=== PATIENT | male | born 1950 | race Caucasian/White ===

== ENCOUNTER 2016-09-02 15:33 | Inpatient (IN) | payer SELFPAY ==
--- NOTE | 2016-09-02 15:46 | EDPHY ---
H & P Time Seen by Provider: 09/02/16 15:42 HPI/ROS: CHIEF COMPLAINT: I am feeling weak HISTORY OF PRESENT ILLNESS: The patient is a 66-year-old male with a history of diabetes and hypertension who presents to the emergency department with weakness. The patient was admitted on 08/19/2016 and discharged on 08/22/2016 with community-acquired pneumonia. He took a total of 10 days of Levaquin. The 1st 3 days for IV in the hospital and he was discharged with 7 days of Levaquin. Patient states that he felt better when he was discharged home. However, for the past few days he has been feeling worse. The patient states I think might pneumonia is right here. He is pointing to the right upper lobe. The patient feels fatigued. He has increased shortness of breath with ambulation. Mild right upper chest discomfort. REVIEW OF SYSTEMS: My complete review of systems is negative except as mentioned in the HPI. Past Medical/Surgical History: Includes diabetes, hypertension, hypothyroidism, pneumonia Past surgical history: Includes appendectomy Social history: Patient lives at a [address]. He is retired [employer] Smoking Status: Current every day smoker Physical Exam: GENERAL: Well-appearing, in no acute distress, alert. HEENT: Eyes normal to inspection, normal pharynx, no signs of dehydration. NECK: No thyromegaly, no lymphadenopathy, supple. RESPIRATORY: Mild decreased breath sounds in the right upper lobe, no rales, rhonchi or wheezing. CVS: Regular rate and rhythm, no rubs, murmurs, or gallops. ABDOMEN: Soft, nontender, nondistended, no organomegaly. BACK: Normal to inspection, no CVA tenderness. SKIN: Normal color, no rash, warm, dry. No pallor. EXTREMITIES: No pedal edema, no calf tenderness, no Homans sign or cords, no joint swelling. NEURO/PSYCH: Alert and oriented, normal mood and affect, normal motor sensory exam. Constitutional: Initial Vital Signs Temperature (C) 36.9 C 09/02/16 15:35 Heart Rate 114 H 09/02/16 15:35 Respiratory Rate 16 09/02/16 15:35 Blood Pressure 122/66 H 09/02/16 15:35 O2 Sat (%) 93 09/02/16 15:35 O2 Delivery Mode Room Air Allergies/Adverse Reactions: Penicillins Allergy (Verified 08/14/16 12:09) Home Medications: Medication Instructions Recorded glyBURIDE [Glyburide] 10 mg PO DAILY 08/14/16 Levothyroxine [Synthroid 150 mcg 150 mcg PO DAILY06 08/19/16 (*)] Lisinopril [Zestril 40 mg (*)] 40 mg PO DAILY 08/19/16 Albuterol Hfa Anes Only [Proair 2 puffs IH QID PRN #1 mdi 08/22/16 Hfa Icu (*)] amLODIPine BESYLATE [Norvasc 2.5 2.5 mg PO DAILY #0 tab 08/22/16 mg (*)] levOFLOXACIN [Levofloxacin] 500 mg PO DAILY #7 tablet 08/22/16 oxyCODONE IR [Oxycodone Ir (*)] 5 mg PO Q6 PRN #30 tab 08/22/16 Medical Decision Making - Diagnostics EKG Interpretation: Sinus rhythm at 88. Right atrial abnormality. Normal axis. Normal intervals. Flattened T-waves V4 through V6. ED Course/Re-evaluation: In the emergency department I discussed the plan with the patient answered all his questions. IV was placed. Laboratory studies, EKG and chest x-ray were obtained. I reviewed the patient's previous records. I was contacted by the lab for an elevated glucose of greater than 500. The patient's anion gap is normal. [place] [address]. Hematocrit is mildly low at 37. The patient's sodium is low at 131. I reviewed the patient's imaging studies with the radiologist. I subsequently discussed the case with Dr. Ying, the patient's primary physician. She states that he was recently diagnosed with both hepatitis-B and C. His sugars are not normally significantly elevated. She recommended the patient be admitted for further treatment and observation. I discussed the result with the patient. I answered all his questions. Discussed the case with Dr. Huff. A CT of the chest will be ordered. He recommended Zosyn as antibiotic choice. Prior to ordering Zosyn it was noted the patient has an allergy to penicillin. Patient was given azithromycin 500 mg IV and ertapenem 1 g IV. 18 54: I discussed the case with Dr. Sam Esparza. He states there is no pulmonary embolus. The patient has a significantly consolidated right upper lobe infiltrate. This does raise concern for early abscess. Patient also has significant emphysema. Patient has an annular pancreas. Differential Diagnosis: My differential includes but is not limited to pneumonia, empyema, electrolyte abnormality, sugar abnormality, malignancy, mass, ACS, acute MA, dehydration - Data Points Laboratory Results: Laboratory Results 09/02/16 16:10 09/02/16 16:10 09/02/16 09/02/16 17:00 16:10 WBC 14.62 H 10^3/uL (3.80-9.50) RBC 4.00 L 10^6/uL (4.40-6.38) Hgb 12.8 L g/dL (13.7-17.5) Hct 37.5 L % (40.0-51.0) MCV 93.8 fL (81.5-99.8) MCH 32.0 pg (27.9-34.1) MCHC 34.1 g/dL (32.4-36.7) RDW 12.7 % (11.5-15.2) Plt Count 367 10^3/uL (150-400) MPV 10.5 fL (8.7-11.7) Neut % (Auto) 75.0 H % (39.3-74.2) Lymph % (Auto) 16.5 % (15.0-45.0) Donley % (Auto) 7.0 % (4.5-13.0) Eos % (Auto) 0.2 L % (0.6-7.6) Baso % (Auto) 0.5 % (0.3-1.7) Nucleat RBC Rel Count 0.0 % (0.0-0.2) Absolute Neuts (auto) 10.96 H 10^3/uL (1.70-6.50) Absolute Lymphs (auto) 2.41 10^3/uL (1.00-3.00) Absolute Monos (auto) 1.03 H 10^3/uL (0.30-0.80) Absolute Eos (auto) 0.03 10^3/uL (0.03-0.40) Absolute Basos (auto) 0.07 10^3/uL (0.02-0.10) Absolute Nucleated RBC 0.00 10^3/uL (0-0.01) Immature Gran % 0.8 % (0.0-1.1) Immature Gran # 0.12 H 10^3/uL (0.00-0.10) Sodium 131 L mEq/L (134-144) Potassium 3.7 mEq/L (3.5-5.2) Chloride 92 L mEq/L (97-110) Carbon Dioxide 28 mEq/l (22-31) Anion Gap 11 mEq/L (8-16) BUN 16 mg/dL (7-23) Creatinine 0.6 L mg/dL (0.7-1.3) Estimated GFR > 60 Glucose 549 H* mg/dL (70-100) Calcium 8.6 mg/dL (8.5-10.4) Troponin I < 0.012 ng/mL (0-0.034) NT-Pro-B Natriuret Pep 241 H pg/mL (0-125) Influenza Typ A,B (DFA) NEGATIVE FOR FLU (NEGATIVE) Medications Given: Discontinued Medications Sodium Chloride (Ns) 1,000 mls @ 0 mls/hr IV ONCE ONE PRN Reason: Wide Open Stop: 09/02/16 17:03 Last Admin: 09/02/16 17:06 Dose: 1,000 mls Azithromycin 500 mg/ Dextrose 255 mls @ 255 mls/hr IV EDNOW ONE PRN Reason: Protocol Stop: 09/02/16 18:32 Last Admin: 09/02/16 18:37 Dose: 255 mls Ertapenem 1 gm/ Sodium (Chloride) 100 mls @ 200 mls/hr IV EDNOW ONE PRN Reason: Protocol Stop: 09/02/16 18:02 Last Admin: 09/02/16 17:56 Dose: 100 mls Sodium Chloride (Ns) 1,000 mls @ 0 mls/hr IV ONCE ONE PRN Reason: Wide Open Stop: 09/02/16 18:39 Last Admin: 09/02/16 18:40 Dose: 1,000 mls Departure - Departure Disposition: [facility] Acute Clinical Impression: Right upper lobe pneumonia, Hyperglycemia, Hyponatremia Condition: Good
[2016-09-02 16:42] LABS: % IMMATURE GRANULYOCYTES 0.8 % (0.0-1.1); ABSOLUTE IMMATURE GRANULOCYTES 0.12 10^3/uL (0.00-0.10); ADD DIFF? NO; ADD MORPH? NO; ADD SCAN? NO; ATYPICAL LYMPHOCYTE FLAG 80 (0-99); FRAGMENT RBC FLAG 0 (0-99); HEMATOCRIT 37.5 % (40.0-51.0); HEMOGLOBIN 12.8 g/dL (13.7-17.5); LEFT SHIFT FLG 10 (0-99); LIPEMIA HEMOLYSIS FLAG 90 (0-99); MEAN CELL HEMOGLOBIN CONCENTR. 34.1 g/dL (32.4-36.7); MEAN CELL VOLUME 93.8 fL (81.5-99.8); MEAN PLATELET VOLUME 10.5 fL (8.7-11.7); PLATELET CLUMPS FLAG 0 (0-99); PLATELET COUNT 367 10^3/uL (150-400); RED CELL DISTRIBUTION WIDTH 12.7 % (11.5-15.2)
[2016-09-02 16:58] LABS: ANION GAP 11 mEq/L (8-16); CALCIUM 8.6 mg/dL (8.5-10.4); CARBON DIOXIDE 28 mEq/l (22-31); CHLORIDE 92 mEq/L (97-110); CREATININE 0.6 mg/dL (0.7-1.3); GLOMERULAR FILTRATION RATE > 60; POTASSIUM 3.7 mEq/L (3.5-5.2); SODIUM 131 mEq/L (134-144)
--- NOTE | 2016-09-02 16:59 | DX ---
PA and Lateral Chest on September 02, 2016 at 1618 hours Clinical Indications: Pneumonia. Comparison: August 21, 2016. Findings: Peripheral right upper lobar consolidation is predominantly unchanged compared to 2 weeks prior. There is no effusion. The left lung is clear. The heart and pulmonary vessels are normal. Ther e are no pleural effusions and no pneumothorax. The bones are unremarkable for this age. Impression: No significant change in the right upper lobe pneumonia.
[2016-09-02 17:00] LABS: GLUCOSE 549 mg/dL (70-100)
[2016-09-02] MEDS ORDERED: NS 1,000 ML IV ONE ×2 (17:02→18:38)
[2016-09-02 17:10] LABS: TROPONIN I < 0.012 ng/mL (0-0.034)
--- NOTE | 2016-09-02 17:11 | CPEKG ---
Heart Rate: 88 RR Interval: 682 P-R Interval: 140 QRSD Interval: 82 QT Interval: 404 QTC Interval: 489 P Festus: 76 QRS Festus: 71 T Wave Festus: 81 EKG Severity - ABNORMAL ECG - EKG Impression: SINUS RHYTHM EKG Impression: RIGHT ATRIAL ABNORMALITY EKG Impression: BORDERLINE T ABNORMALITIES, ANT-LAT LEADS EKG Impression: BORDERLINE PROLONGED QT INTERVAL Electronically Signed By: Zeina Sosa 02-Sep-2016 22:03:24
[2016-09-02] MEDS ORDERED: AZITHROMYCIN IV 500 MG in D5W 250 ML IV ONE (17:33)
[2016-09-02] MEDS ORDERED: ERTAPENEM 1 GM in NS 100 ML IV ONE (17:33)
[2016-09-02] MEDS ORDERED: IOPAMIDOL (ISOVUE 370) 100 ML BTL IV ONE (18:15)
--- NOTE | 2016-09-02 18:56 | CT ---
CT Pulmonary Angiogram 1826 hours Clinical Indications: Dyspnea. Persistent pneumonia not improving with antibiotics. History of tobacc o use, hypertension, diabetes, and Shortness of breath. Elevated white blood count. Technique: Thinly collimated multidetector helical CT imaging was performed through the chest while 90 mL Isovue-370 were injected intravenously without complication. The images were reconstructed in multiple planes. Dose reduction techniques were utilized. Findings: Comparison to prior chest x-ray studies from earlier today an from August 21, 2016. CT Angiogram: There is no evidence of intraluminal thrombus within the pulmonary arterial system. Th e thoracic aorta has a normal contour without evidence of aneurysm or dissection. There is mild arter iosclerotic calcification associated with the proximal to mid LAD. There is no pericardial effusion. The cardiac chambers are normal in appearance. CT Chest: There is dense consolidation right upper lobe that contains some gas collections along with associated areas of decreased attenuation and enhancement possibly related to small pulmonary absces ses. No large dominant pulmonary abscess is seen. Some of these gas collections, however, could be re lated to underlying emphysema. The dense consolidation extends around the right hilum. There is also extension of heterogeneous enhancement into the subcarinal region suspicious for lymphadenopathy. Sma ller lymph nodes are present in the AP window. There is no evidence of narrowing of the bronchus on t he right that is surrounded by soft tissue components. There are scattered emphysematous changes elsewhere within the lungs bilaterally. No additional conso lidation is seen or evidence of effusion. Small blebs are seen adjacent to the right hemidiaphragm as well as some scattered small peripheral blebs in the lung parenchyma bilaterally. Soft tissues are otherwise unremarkable. Incidental note is made of annular pancreas surrounding the second portion o f the duodenum without evidence of obstruction or thickening. The right and left adrenal glands are t hickened diffusely suspicious for adrenal hyperplasia. Otherwise, the visualized upper abdominal stru ctures are unremarkable during arterial phase of imaging. Skeletal system: Vertebral body heights are well-maintained. There are no lytic or sclerotic osseous lesions. Impression: 1. No evidence of pulmonary embolus using CT protocol. 2. Dense consolidation right upper lobe with areas of low density and gas bubbles that could represen t small areas of pulmonary abscesses versus gas-filled areas related to underlying emphysema. 3. Dense consolidation extends around the right hilum and into the subcarinal region. This is probabl y related to consolidation/pneumonia. Lymphadenopathy secondary to malignancy is felt to be possible but less likely. Consider followup CT of the chest following successful treatment. If findings do not improve then bronchoscopy may be utilized as clinically directed. 4. Moderate emphysematous changes throughout the lungs with scattered peripheral blebs also noted. 5. Annular pancreas 6. Adrenal hyperplasia suspected. These findings were discussed by telephone with Dr. Zeina Sosa at 1855 hrs.
[2016-09-02] MEDS ORDERED: ONDANSETRON DISINTEGRATING 4 MG TAB PO PRN (21:20)
[2016-09-02] MEDS ORDERED: ACETAMINOPHEN 325 MG TAB PO PRN (21:20)
[2016-09-02] MEDS ORDERED: ALBUTEROL 3 ML DEYVIAL IH PRN (21:20)
[2016-09-02] MEDS ORDERED: ONDANSETRON 4 MG/2 ML VIAL IVP PRN (21:20)
[2016-09-02] MEDS ORDERED: ZOLPIDEM TARTRATE 5 MG TAB PO PRN (21:20)
[2016-09-02] MEDS ORDERED: D50W 25 GM/50 ML SYR IVP PRN (21:23)
[2016-09-02] MEDS ORDERED: oxyCODONE IR 5 MG TAB PO PRN (21:26)
--- NOTE | 2016-09-02 22:06 | GHP ---
[f rep st] HISTORY AND PHYSICAL DATE OF ADMISSION: 09/02/2016 CHIEF COMPLAINT: Weakness. HISTORY OF PRESENT ILLNESS: This is a 66-year-old male who was recently admitted to the hospital and discharged on August 22. He was diagnosed with a right upper lobe pneumonia at that time. He was started on Levaquin and said he felt better over the next several days. He actually states that bef ore he was diagnosed with pneumonia, approximately for the last 2 or 3 weeks he has been having diffi culty eating in that nothing tastes good and he has been having nausea. He had been complaining of g eneralized weakness. When he was diagnosed with pneumonia and started on antibiotics, some of his sy mptoms including sputum production and cough improved, but he continues with poor appetite and weakne ss. The patient said his sputum has cleared. He denies any chest pain. He is not having any fevers or chills. He has lost about 15-20 pounds in the last several weeks. REVIEW OF SYSTEMS: 10-point review of systems obtained and other than stated above was negative. PAST MEDICAL HISTORY: 1. Type 2 diabetes. 2. Hypothyroidism. 3. Hypertension. 4. Recent diagnosis of hepatitis B and C. PAST SURGICAL HISTORY: Appendectomy. ALLERGIES: Penicillin. He had an episode of emesis when he received penicillin as a child. FAMILY HISTORY: Father with dementia. SOCIAL HISTORY: Patient does smoke, although he has reduced his smoking. He is a retired [employer]. PHYSICAL EXAMINATION: VITAL SIGNS: Afebrile, blood pressure is 131/73, heart rate 87, oxygen satura tion 94% on room air. GENERAL: The patient is thin, but in no apparent distress. HEENT: Nonicteri c sclerae. Extraocular muscles intact. Moist mucous membranes. NECK: Supple. No thyromegaly. ANNEMARIE NGS: Good effort. Clear to auscultation bilaterally. LUNGS: Good effort. Decreased breath sounds in the right upper lobe; otherwise, clear. CARDIOVASCULAR: Regular rate, rhythm. No murmurs or ga llops. ABDOMEN: Positive bowel sounds. Soft, nontender, nondistended. No hepatosplenomegaly. EXT REMITIES: No clubbing, cyanosis, or edema. SKIN: Without rash. Warm, dry, intact. NEUROLOGIC: Al ert and oriented x3. Moving all 4 extremities equally. PSYCH: Normal mood and affect. LABS: White count of 14, which is better than his discharge white count of 22. Sodium 136, potassiu m 3.1, BUN is 16, creatinine 0.6, glucose is 549 with repeat. Chest x-ray shows no change from previous with a right upper lobe infiltrate, and CT scan shows a den se consolidation in the right upper lobe, possible small areas of pulmonary abscess versus gas-filled areas due to underlying emphysema. There is lymphadenopathy. ASSESSMENT: This is a 66-year-old male with persistent right upper lobe pneumonia. PLAN: 1. Right upper lobe pneumonia. The patient's pulmonary infectious symptoms seem to be improving. H is main complaint is poor appetite and overall weakness. There may be an element of pulmonary absces s there, but I am more worried about malignancy. We will probably have to call Pulmonology see in morning for possible bronchoscopy and bronchoscopy. I switched his antibiotics to Invanz to cover postobstructive pneumonia. I am going to hold off on adding vancomycin at this time. 2. Type 2 diabetes, uncontrolled. This is probably related to underlying pneumonia. He has been ta ruddy his medications. We will continue sliding scale insulin. Since we will keep him n.p.o., we aroldo l probably hold his glyburide tomorrow. 3. Hypertension. Continue lisinopril. 4. Recent hepatitis B and C diagnosis. /[id number]/MODL
[2016-09-03 05:09] LABS: % IMMATURE GRANULYOCYTES 0.7 % (0.0-1.1); ADD DIFF? NO; ADD MORPH? NO; ADD SCAN? NO; ATYPICAL LYMPHOCYTE FLAG 80 (0-99); FRAGMENT RBC FLAG 0 (0-99); HEMATOCRIT 33.4 % (40.0-51.0); HEMOGLOBIN 11.2 g/dL (13.7-17.5); LEFT SHIFT FLG 10 (0-99); LIPEMIA HEMOLYSIS FLAG 80 (0-99); MEAN CELL HEMOGLOBIN 31.8 pg (27.9-34.1); MEAN CELL HEMOGLOBIN CONCENTR. 33.5 g/dL (32.4-36.7); MEAN CELL VOLUME 94.9 fL (81.5-99.8); MEAN PLATELET VOLUME 10.1 fL (8.7-11.7); PLATELET CLUMPS FLAG 0 (0-99); PLATELET COUNT 359 10^3/uL (150-400); RED BLOOD CELL COUNT 3.52 10^6/uL (4.40-6.38)
[2016-09-03 05:23] LABS: ALANINE AMINOTRANSFERASE 102 IU/L (21-72); ALBUMIN 2.2 g/dL (3.5-5.0); ALKALINE PHOSPHATASE 87 IU/L (38-126); ANION GAP 7 mEq/L (8-16); ASPARTATE AMINOTRANSFERASE 83 IU/L (17-59); BILIRUBIN,TOTAL 0.5 mg/dL (0.1-1.4); CALCIUM 7.4 mg/dL (8.5-10.4); CARBON DIOXIDE 28 mEq/l (22-31); CHLORIDE 102 mEq/L (97-110); CREATININE 0.5 mg/dL (0.7-1.3); GLOMERULAR FILTRATION RATE > 60; GLUCOSE 236 mg/dL (70-100); POTASSIUM 3.8 mEq/L (3.5-5.2); SODIUM 137 mEq/L (134-144); TOTAL PROTEIN 5.8 g/dL (6.3-8.2)
[2016-09-03] MEDS: LEVOTHYROXINE 150 MCG TAB PO SCH (05:37)
[2016-09-03] MEDS: LISINOPRIL 40 MG TAB PO SCH (08:28)
[2016-09-03] MEDS: ERTAPENEM 1 GM in NS 100 ML IV SCH (08:28)
[2016-09-03] MEDS: INSULIN LISPRO 100 UNIT/ML SC SCH ×3 (10:02→18:08)
--- NOTE | 2016-09-03 12:15 | HOSPPROG ---
Hospitalist Progress Note Assessment/Plan: 66 yo M with longstanding and current tobacco use hx presenting with continued RUL PNA # RUL PNA: with evidence of pulmonary abscess on personal review of cta. He has typical sxs of lung abscess with now weeks of malaise, night sweats, weight loss. He was treated recently for the same and d/c'ed on levofloxacin. Started on ertapenem overnight with clinical improvement. Will ask pulmonary to review patients chest CT but suspect f/u CT in 3 months appropriate so long as pt continues to improve as expected. # sepsis: pt with tachycardia, leukocytosis in setting of above, abx as above, HD stable, cultures pending # DM2: continue ssi, hyperglycemia likely related to stress response in setting of sepsis # copd: undiagnosed but given approximately 50 pack year smoking hx and likely blebs on CT very likely. Will start duonebs/albuterol. Good air mvmt and no e/o acute exacerbation currently # malnutrition: with BMI of 17, states he has lost 15-20 pounds in the last several weeks, will ask for nutrtition consult # tobacco use: patient interested in quitting, states he has cut down significantly already # dispo: IP status, will need > 48 hours stay for eval/mgmt of above and IV abx Patient new to my care. Old records reviewed and summarized as above. Subjective: no significant overnight events, patient feeling better than yesterday already in terms of energy Objective: Vital Signs Temp Pulse Resp BP Pulse Ox 37.1 C 89 14 107/66 94 09/03/16 11:29 09/03/16 11:29 09/03/16 11:29 09/03/16 11:29 09/03/16 11:29 Laboratory Results 09/03/16 04:36 09/03/16 04:36 09/02/16 09/03/16 09/04/16 05:59 05:59 05:59 Intake Total 2955 Output Total 800 Balance 2155 thin, chronically ill appearing man anicteric op clear rrr no mrg cta with normal wob, occ rales on right soft nt nd no cce warm dry well perfused oriented appropriate - Time Spent With Patient Time Spent with Patient: greater than 35 minutes Time Spent with Patient: Greater than 35 minutes spent on this patients care, greater than 50% of time spent counseling, educating, and coordinating care regarding the above mentioned plan. ICD10 Worksheet Patient Problems: Problems Problem Status Diagnosed Hyperglycemia Acute Hyponatremia Acute Right upper lobe pneumonia Acute Pneumonia Acute Viral syndrome Acute
[2016-09-03] MEDS: IPRATROPIUM/ALBUTEROL 3 ML DEYVIAL IH SCH ×3 (16:09→23:25)
[2016-09-03] MEDS: ACETYLCYSTEINE 10% 30 ML VIAL IH SCH ×3 (16:09→23:25)
[2016-09-03 18:01] LABS: GLUCOSE 317 mg/dL (70-100); SPECIMEN HEMOLYSIS 153
[2016-09-04] MEDS: IPRATROPIUM/ALBUTEROL 3 ML DEYVIAL IH SCH ×4 (05:27→21:12)
[2016-09-04] MEDS: ACETYLCYSTEINE 10% 30 ML VIAL IH SCH ×4 (05:27→21:13)
[2016-09-04 05:42] LABS: % IMMATURE GRANULYOCYTES 0.6 % (0.0-1.1); ABSOLUTE IMMATURE GRANULOCYTES 0.06 10^3/uL (0.00-0.10); ADD DIFF? NO; ADD MORPH? NO; ADD SCAN? NO; ATYPICAL LYMPHOCYTE FLAG 90 (0-99); FRAGMENT RBC FLAG 0 (0-99); HEMATOCRIT 33.2 % (40.0-51.0); HEMOGLOBIN 11.1 g/dL (13.7-17.5); LEFT SHIFT FLG 0 (0-99); LIPEMIA HEMOLYSIS FLAG 80 (0-99); MEAN CELL HEMOGLOBIN 32.5 pg (27.9-34.1); MEAN CELL HEMOGLOBIN CONCENTR. 33.4 g/dL (32.4-36.7); MEAN CELL VOLUME 97.1 fL (81.5-99.8); PLATELET CLUMPS FLAG 10 (0-99); PLATELET COUNT 353 10^3/uL (150-400); RED BLOOD CELL COUNT 3.42 10^6/uL (4.40-6.38); RED CELL DISTRIBUTION WIDTH 12.8 % (11.5-15.2)
[2016-09-04 05:49] LABS: ANION GAP 4 mEq/L (8-16); CALCIUM 7.5 mg/dL (8.5-10.4); CARBON DIOXIDE 32 mEq/l (22-31); CHLORIDE 99 mEq/L (97-110); CREATININE 0.4 mg/dL (0.7-1.3); GLOMERULAR FILTRATION RATE > 60; GLUCOSE 276 mg/dL (70-100); POTASSIUM 4.3 mEq/L (3.5-5.2); SODIUM 135 mEq/L (134-144)
[2016-09-04] MEDS: LEVOTHYROXINE 150 MCG TAB PO SCH (06:03)
[2016-09-04] MEDS: LISINOPRIL 40 MG TAB PO SCH (08:52)
[2016-09-04] MEDS: ENOXAPARIN 40 MG/0.4 ML SYR SC SCH (08:52)
[2016-09-04] MEDS: INSULIN LISPRO 100 UNIT/ML SC SCH ×3 (08:52→17:16)
[2016-09-04] MEDS: ERTAPENEM 1 GM in NS 100 ML IV SCH (08:53)
[2016-09-04 12:16] LABS: GLUCOSE 371 mg/dL (70-100)
--- NOTE | 2016-09-04 15:06 | HOSPPROG ---
Hospitalist Progress Note Assessment/Plan: 66 yo M with longstanding and current tobacco use hx presenting with continued RUL PNA # RUL PNA: with evidence of likely pulmonary abscess on personal review of cta. He has typical sxs of lung abscess with now weeks of malaise, night sweats, weight loss. Improving significantly on ertapenem. Reviewed care plan with pulmonary who agrees with plan to continue tx with abx x 2-3 weeks and then have pt f/u for repeat CT scan in 1 month. # sepsis: pt with tachycardia, leukocytosis in setting of above, abx as above, HD stable, cultures pending # DM2: continue ssi, hyperglycemia likely related to stress response in setting of sepsis # copd: undiagnosed but given approximately 50 pack year smoking hx and imaging evidence of copd. Will start duonebs/albuterol. Good air mvmt and no e/o acute exacerbation currently # malnutrition: with BMI of 17, states he has lost 15-20 pounds in the last several weeks, will ask for nutrtition consult # tobacco use: patient interested in quitting, states he has cut down significantly already # dispo: IP status, will need > 48 hours stay for eval/mgmt of above and IV abx Reviewed care plan with pulmonary as above. Subjective: no significant overnight events, patient states that he is feeling better again today, he is breathing easier, coughing still, eating better Objective: Vital Signs Temp Pulse Resp BP Pulse Ox 36.3 C 95 18 121/73 H 93 09/04/16 07:21 09/04/16 07:21 09/04/16 07:21 09/04/16 08:52 09/04/16 07:21 Laboratory Results 09/04/16 04:56 09/04/16 11:15 09/03/16 09/04/16 09/05/16 05:59 05:59 05:59 Intake Total 2955 2175 Output Total 800 Balance 2155 2175 thin, chronically ill appearing man anicteric op clear rrr no mrg cta with normal wob, occ rales on right soft nt nd no cce warm dry well perfused oriented appropriate - Time Spent With Patient Time Spent with Patient: greater than 35 minutes Time Spent with Patient: Greater than 35 minutes spent on this patients care, greater than 50% of time spent counseling, educating, and coordinating care regarding the above mentioned plan. ICD10 Worksheet Patient Problems: Problems Problem Status Diagnosed Hyperglycemia Acute Hyponatremia Acute Right upper lobe pneumonia Acute Pneumonia Acute Viral syndrome Acute
[2016-09-04] MEDS ORDERED: LORazepam 1 MG TAB PO PRN (16:14)
[2016-09-04] MEDS ORDERED: NICOTINE POLACRILEX 2 MG GUM B PRN (16:14)
[2016-09-04] MEDS: NICOTINE 14 MG/24 HR PATCH TD SCH (17:18)
[2016-09-05] MEDS: ACETYLCYSTEINE 10% 30 ML VIAL IH SCH ×4 (05:00→21:21)
[2016-09-05] MEDS: IPRATROPIUM/ALBUTEROL 3 ML DEYVIAL IH SCH ×4 (05:00→21:21)
[2016-09-05] MEDS: LEVOTHYROXINE 150 MCG TAB PO SCH (06:01)
[2016-09-05] MEDS: LISINOPRIL 40 MG TAB PO SCH (09:04)
[2016-09-05] MEDS: INSULIN LISPRO 100 UNIT/ML SC SCH ×2 (09:05→12:15)
[2016-09-05] MEDS: ERTAPENEM 1 GM in NS 100 ML IV SCH (09:05)
[2016-09-05] MEDS: ENOXAPARIN 40 MG/0.4 ML SYR SC SCH (09:05)
[2016-09-05] MEDS: NICOTINE 14 MG/24 HR PATCH TD SCH (09:07)
--- NOTE | 2016-09-05 14:52 | HOSPPROG ---
Hospitalist Progress Note Assessment/Plan: 66 yo M with longstanding and current tobacco use hx presenting with continued RUL PNA # RUL PNA: with evidence of likely pulmonary abscess on personal review of cta. He has typical sxs of lung abscess with now weeks of malaise, night sweats, weight loss. Improving significantly on ertapenem. Reviewed care plan with pulmonary who agrees with plan to continue tx with abx x 2-3 weeks (likely can transition to oral clindamycin at time of dc) and then have pt f/u for repeat CT scan in 1 month. Plan was reviewed with patient and he understands, reviewed the possibility of occult malignancy with him as well. # sepsis: pt with tachycardia, leukocytosis in setting of above, abx as above, HD stable, cultures pending # DM2: continue ssi, hyperglycemia likely related to stress response in setting of sepsis # copd: undiagnosed but given approximately 50 pack year smoking hx and imaging evidence of copd. Will start duonebs/albuterol. Good air mvmt and no e/o acute exacerbation currently # malnutrition: with BMI of 17, states he has lost 15-20 pounds in the last several weeks, nutrition consult # tobacco use: patient interested in quitting, states he has cut down significantly already # dispo: IP status, will need > 48 hours stay for eval/mgmt of above and IV abx Subjective: no significant overnight events, patient is feeling a bit better-- his appetitie is improved as is his energy, but still quite fatigued. Cough better. Objective: Vital Signs Temp Pulse Resp BP Pulse Ox 36.6 C 90 18 122/81 H 98 09/05/16 07:41 09/05/16 07:41 09/05/16 07:41 09/05/16 07:41 09/05/16 07:41 Laboratory Results 09/04/16 04:56 09/04/16 11:15 09/04/16 09/05/16 09/06/16 05:59 05:59 05:59 Intake Total 2175 800 Balance 2175 800 thin, chronically ill appearing man anicteric op clear rrr no mrg cta with normal wob, occ rales on right soft nt nd no cce warm dry well perfused oriented appropriate ICD10 Worksheet Patient Problems: Problems Problem Status Diagnosed Hyperglycemia Acute Hyponatremia Acute Right upper lobe pneumonia Acute Pneumonia Acute Viral syndrome Acute
[2016-09-05] MEDS: INSULIN LISPRO 100 UNIT/1 ML VIAL HIGH SC SCH (18:31)
[2016-09-06] MEDS: ACETYLCYSTEINE 10% 30 ML VIAL IH SCH ×4 (05:08→22:11)
[2016-09-06] MEDS: IPRATROPIUM/ALBUTEROL 3 ML DEYVIAL IH SCH ×4 (05:09→22:12)
[2016-09-06] MEDS: LEVOTHYROXINE 150 MCG TAB PO SCH (05:13)
[2016-09-06] MEDS ORDERED: INSULIN LISPRO 100 UNIT/ML SC ONE (06:00)
[2016-09-06] MEDS: LISINOPRIL 40 MG TAB PO SCH (07:56)
[2016-09-06] MEDS: ENOXAPARIN 40 MG/0.4 ML SYR SC SCH (07:57)
[2016-09-06] MEDS: INSULIN LISPRO 100 UNIT/1 ML VIAL HIGH SC SCH ×3 (07:57→17:59)
[2016-09-06] MEDS: ERTAPENEM 1 GM in NS 100 ML IV SCH (07:58)
[2016-09-06] MEDS ORDERED: INSULIN GLARGINE 100 UNITS/ML SYRINGE SC SCH (09:30)
[2016-09-06] MEDS: NICOTINE 14 MG/24 HR PATCH TD SCH (10:09)
[2016-09-06 10:24] LABS: % IMMATURE GRANULYOCYTES 1.3 % (0.0-1.1); ABSOLUTE IMMATURE GRANULOCYTES 0.17 10^3/uL (0.00-0.10); ADD DIFF? NO; ADD MORPH? NO; ADD SCAN? NO; ATYPICAL LYMPHOCYTE FLAG 90 (0-99); FRAGMENT RBC FLAG 0 (0-99); HEMATOCRIT 37.6 % (40.0-51.0); HEMOGLOBIN 12.8 g/dL (13.7-17.5); LEFT SHIFT FLG 10 (0-99); LIPEMIA HEMOLYSIS FLAG 90 (0-99); MEAN CELL HEMOGLOBIN 32.8 pg (27.9-34.1); MEAN CELL VOLUME 96.4 fL (81.5-99.8); MEAN PLATELET VOLUME 9.6 fL (8.7-11.7); PLATELET CLUMPS FLAG 0 (0-99); PLATELET COUNT 453 10^3/uL (150-400)
[2016-09-06 10:37] LABS: ANION GAP 10 mEq/L (8-16); CALCIUM 8.6 mg/dL (8.5-10.4); CARBON DIOXIDE 29 mEq/l (22-31); CHLORIDE 100 mEq/L (97-110); CREATININE 0.5 mg/dL (0.7-1.3); GLOMERULAR FILTRATION RATE > 60; GLUCOSE 107 mg/dL (70-100); POTASSIUM 4.9 mEq/L (3.5-5.2); SODIUM 139 mEq/L (134-144)
--- NOTE | 2016-09-06 12:54 | HOSPPROG ---
Hospitalist Progress Note Assessment/Plan: 66 yo M with longstanding and current tobacco use hx presenting with continued RUL PNA. Pt with significant right upper lobe pneumonia and adenopathy in the mediastinum. # RUL PNA complicated by sepsis on admission: Significant consolidation and right upper lobe noted on CT scan. I reviewed the patient with Dr. Mead today. Overall patient has had significant weight loss, has likely been ill for quite some time prior to admission. Will recheck a CT scan today to compare to see if he has improved at all on the antibiotics. If no improvement or worsening of consolidation could consider bronchoscopy. * Continue Invanz * Pulmonary consult in a.m. to review CT scans and need for further evaluation versus long-term antibiotics and close follow-up * # DM2: Hyper glycemia although patient likely had poor control prior to admission with hemoglobin A1c greater than 10 in July. * Add Lantus 15 units daily * Resume glyburide and follow blood sugars * May need to go home with sliding scale in addition to the Lantus depending on blood sugar control. # copd: approximately 50 pack year smoking hx and imaging evidence of copd. Will start duonebs/albuterol. Good air mvmt and no e/o acute exacerbation currently # malnutrition: with BMI of 17, states he has lost 15-20 pounds in the last several weeks, nutrition consult # tobacco use: patient interested in quitting, states he has cut down significantly already # dispo: IP status, will need > 48 hours stay for eval/mgmt of above and IV abx Subjective: Patient still feels quite weak and feels like he is not strong enough to go home. Objective: Vital Signs Temp Pulse Resp BP Pulse Ox 36.7 C 100 16 115/76 95 09/06/16 07:26 09/06/16 10:26 09/06/16 10:26 09/06/16 07:26 09/06/16 10:26 Laboratory Results 09/06/16 10:05 09/06/16 10:05 09/05/16 09/06/16 09/07/16 05:59 05:59 05:59 Intake Total 800 Balance 800 - Physical Exam Constitutional: chronically ill appearing, uncomfortable Eyes: PERRL, EOMI Ears, Nose, Mouth, Throat: moist mucous membranes Cardiovascular: regular rate and rhythym, no murmur, rub, or gallop Respiratory: no respiratory distress, reduced air movement (Right side), No expiratory wheeze Gastrointestinal: normoactive bowel sounds, soft, non-tender abdomen, no palpable masses Skin: warm, normal color Musculoskeletal: no muscle tenderness, no joint effusions Neurologic: AAOx3 Psychiatric: interacting appropriately, not anxious ICD10 Worksheet Patient Problems: Problems Problem Status Diagnosed Hyperglycemia Acute Hyponatremia Acute Right upper lobe pneumonia Acute Pneumonia Acute Viral syndrome Acute
--- NOTE | 2016-09-06 15:37 | GCON ---
[f rep st] CONSULTATION CHEST CONSULTATION REASON FOR CONSULTATION: Pneumonia. HISTORY OF PRESENT ILLNESS: Mr. Henley is a very pleasant 66-year-old white male with a past medical history including hepatitis B, hepatitis C, hypertension, hypothyroidism, and noninsulin-dependent di abetes. He was admitted on 09/02/2016 with evidence of pneumonia. This is his second bout of pneumo trish. He was diagnosed with it in late July. Prior to his admission, he had difficulty eating be cause apparently food had lost its flavor likely secondary to his antibiotics. He has lost significa nt amounts of weight since his last admission. In discussion with the patient, he states he is actua lly feeling a little better today. His appetite is somewhat improved, though food still tastes poorl y to him. He denies any chest pain, pleuritic-type chest pain, or angina equivalent. He does admit to a cough that is now nonproductive. He becomes fatigued with any sort of exertion, but he denies a ny breathlessness. PAST MEDICAL HISTORY: Significant for diabetes, hypertension, hypothyroidism, and hepatitis B and C. ALLERGIES: Penicillin. SOCIAL HISTORY: He has a 40+ pack-year smoker. No significant alcohol use. 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 PHYSICAL EXAM: VITAL SIGNS: Blood pressure is 115/76, pulse 108, respirations 16, temperature is 36 .7, oxygen saturation 95% on room air. GENERAL: He is a thin, somewhat malnourished 66-year-old whi te male, who is resting comfortably, in no acute distress. HEENT: Eyes are CINDY, EOMI. Throat lynette ws no erythema or tonsillar hypertrophy. NECK: Supple. There is no cervical adenopathy. HEART: R egular rate and rhythm without murmurs, rubs, gallops. LUNGS: Diminished breath sounds. Mild prolo ngation of expiratory phase. There are a few crackles in the right lung posteriorly. ABDOMEN: Soft , nontender. Bowel sounds present in all 4 quadrants. EXTREMITIES: There is no clubbing, cyanosis, or edema. LABORATORIES: White count 12.6, hemoglobin 12, hematocrit 37, platelet count 453. Sodium 139, potass ium 4.9, chloride 100, CO2 is 29, BUN 11, creatinine 0.5, glucose is 107. Influenza A and B are nega tive. IMAGING: CT scan of the chest upon admission shows no evidence of PE however, there is a dense right upper lobe consolidation with some evidence of gas bubbles representing smaller areas of lung absces s. He has moderate emphysemic changes in both lungs. IMPRESSION: 1. Pneumonia. This is dense with some evidence of evolving abscess. 2. Malnutrition/weight loss. 3. Chronic obstructive pulmonary disease. 4. Hypertension. 5. Noninsulin-dependent diabetes. 6. Hepatitis. /[id number]/MODL
[2016-09-06] MEDS ORDERED: IOPAMIDOL (ISOVUE-300) 50 ML VIAL IV ONE (17:39)
[2016-09-06 18:48] LABS: GLUCOSE 381 mg/dL (70-100)
--- NOTE | 2016-09-06 18:58 | CT ---
CT Chest With Contrast September 06, 2016 Indication: Follow-up right upper lobe pneumonia. Technique: Standard CT of the chest utilizing 5 mm collimated slices through the thorax following un eventful intravenous administration of 90 mL of Isovue-300. Dose reduction techniques were utilized. Comparison: CT chest with contrast dated September 02, [address] of the abdomen and pelvis without con trast dated July 12, 2006. Findings: A equivocal right suprahilar mass, bulging the fissure posteriorly on image 60 of series 3, measures 3.5 x 2.7 cm in the axial plane. The suspected mass is contiguous with amorphous enhancing soft tissue as it tracks inferiorly into the subcarinal barrie station. The mass-like consolidation conte s not significantly changed in volume since five days prior. Several of the previously fluid-filled locules in the dense right upper lobe consolidation are now ga s-filled and have the appearance of cavitation and improving pulmonary abscesses rather than fluid-f illed centrilobular emphysema. A small centimeter-sized fluid-filled locule persists along the latera l aspect of the major fissure in image 51 of series 3. No endobronchial lesion or narrowing of the ri ght upper lobe bronchus. The remainder of the lungs remain well aerated and clear. Minimal centrilobu lar emphysema is present in the left upper lobe. No new airspace consolidation. No pericardial or pleural effusion has developed. No enlarged lymph nodes have developed within the a xilla or contralateral hilum. Thickening of the left adrenal gland is unchanged since June 2006. The right adrenal gland is normal. No lytic or blastic bone lesions. Impression: 1. Evolving right upper lobe pneumonia with minimal gradual clearing and cavitation of several small right upper lobe pulmonary abscesses. 2. Persistent equivocal right hilar mass. Recommend pulmonary consultation for possible bronchoscopy. 3. Minimal centrilobular emphysema left lung apex. 4. No pericardial or pleural effusion.
[2016-09-06] MEDS: INSULIN GLARGINE 100 UNITS/ML SYRINGE SC SCH (22:05)
[2016-09-07] MEDS: LEVOTHYROXINE 150 MCG TAB PO SCH (05:16)
[2016-09-07] MEDS: IPRATROPIUM/ALBUTEROL 3 ML DEYVIAL IH SCH ×2 (05:37→11:02)
[2016-09-07] MEDS: ACETYLCYSTEINE 10% 30 ML VIAL IH SCH ×2 (05:37→11:02)
[2016-09-07 06:00] LABS: ALANINE AMINOTRANSFERASE 80 IU/L (21-72); ALBUMIN 2.4 g/dL (3.5-5.0); ALKALINE PHOSPHATASE 192 IU/L (38-126); ANION GAP 7 mEq/L (8-16); ASPARTATE AMINOTRANSFERASE 66 IU/L (17-59); BILIRUBIN,TOTAL 0.3 mg/dL (0.1-1.4); CALCIUM 8.1 mg/dL (8.5-10.4); CARBON DIOXIDE 30 mEq/l (22-31); CHLORIDE 98 mEq/L (97-110); CREATININE 0.5 mg/dL (0.7-1.3); GLOMERULAR FILTRATION RATE > 60; GLUCOSE 274 mg/dL (70-100); POTASSIUM 5.5 mEq/L (3.5-5.2); SODIUM 135 mEq/L (134-144); TOTAL PROTEIN 6.4 g/dL (6.3-8.2)
[2016-09-07 06:01] LABS: % IMMATURE GRANULYOCYTES 2.1 % (0.0-1.1); ABSOLUTE IMMATURE GRANULOCYTES 0.22 10^3/uL (0.00-0.10); ADD DIFF? NO; ADD MORPH? NO; ADD SCAN? NO; ATYPICAL LYMPHOCYTE FLAG 90 (0-99); FRAGMENT RBC FLAG 0 (0-99); HEMOGLOBIN 12.3 g/dL (13.7-17.5); LEFT SHIFT FLG 10 (0-99); LIPEMIA HEMOLYSIS FLAG 80 (0-99); MEAN CELL HEMOGLOBIN 32.5 pg (27.9-34.1); MEAN CELL HEMOGLOBIN CONCENTR. 33.2 g/dL (32.4-36.7); MEAN CELL VOLUME 97.9 fL (81.5-99.8); PLATELET CLUMPS FLAG 10 (0-99); PLATELET COUNT 420 10^3/uL (150-400); RED BLOOD CELL COUNT 3.78 10^6/uL (4.40-6.38); RED CELL DISTRIBUTION WIDTH 13.2 % (11.5-15.2)
[2016-09-07] MEDS: INSULIN LISPRO 100 UNIT/1 ML VIAL HIGH SC SCH ×2 (08:40→12:19)
[2016-09-07 08:46] VITALS: PULSE 100; RESP 16; TEMP 98.2; O2SAT 91
[2016-09-07] MEDS: INSULIN GLARGINE 100 UNITS/ML SYRINGE SC SCH (10:23)
[2016-09-07] MEDS: LISINOPRIL 40 MG TAB PO SCH (10:29)
[2016-09-07] MEDS: ERTAPENEM 1 GM in NS 100 ML IV SCH (10:29)
[2016-09-07 10:30] VITALS: BP 103/73
[2016-09-07] MEDS: ENOXAPARIN 40 MG/0.4 ML SYR SC SCH (10:30)
[2016-09-07] MEDS: NICOTINE 14 MG/24 HR PATCH TD SCH (10:31)
--- NOTE | 2016-09-07 10:40 | HOSPPROG ---
Hospitalist Progress Note Assessment/Plan: 66 yo M with longstanding and current tobacco use hx presenting with continued RUL PNA. Pt with significant right upper lobe pneumonia and adenopathy in the mediastinum. Repeat CT reviewed and shows question development of abscess. Will review with Pulmonary, need for bronch. # RUL PNA complicated by sepsis on admission: Significant consolidation and right upper lobe noted on CT scan. Appreciate Dr. Mead consult who recommended repeat CT. Will discuss ongoing treatment with Dr. Sommer who is on today. * Continue Invanz * Pulmonary consult in a.m. to review CT scans and need for further evaluation versus long-term antibiotics and close follow-up # DM2: Hyper glycemia although patient likely had poor control prior to admission with hemoglobin A1c greater than 10 in July. * resume glyburide * may need to increase lantus, currently on 15 bid. If additional glyburide doesn't help * consider metformin. Has had contrast so need to hold til after dc. # copd: approximately 50 pack year smoking hx and imaging evidence of copd. Will start duonebs/albuterol. Good air mvmt and no e/o acute exacerbation currently # malnutrition: with BMI of 17, states he has lost 15-20 pounds in the last several weeks, nutrition consult # tobacco use: patient interested in quitting, states he has cut down significantly already # dispo: IP status, will need > 48 hours stay for eval/mgmt of above and IV abx Subjective: Blaming his high sugars on his diet in hospital. still feels congested. Objective: Vital Signs Temp Pulse Resp BP Pulse Ox 36.8 C 100 16 103/73 91 L 09/07/16 08:45 09/07/16 08:45 09/07/16 08:45 09/07/16 10:29 09/07/16 08:45 Laboratory Results 09/07/16 04:37 09/07/16 04:37 09/06/16 09/07/16 09/08/16 05:59 05:59 05:59 Intake Total 750 Balance 750 - Physical Exam Constitutional: not in pain, chronically ill appearing Eyes: PERRL, EOMI Ears, Nose, Mouth, Throat: moist mucous membranes, hearing normal Cardiovascular: regular rate and rhythym, no murmur, rub, or gallop Respiratory: no respiratory distress, reduced air movement Gastrointestinal: normoactive bowel sounds, soft, non-tender abdomen Genitourinary: no bladder fullness Skin: warm, normal color Musculoskeletal: normal joint ROM, no joint effusions Neurologic: AAOx3 Psychiatric: interacting appropriately ICD10 Worksheet Patient Problems: Problems Problem Status Diagnosed Hyperglycemia Acute Hyponatremia Acute Right upper lobe pneumonia Acute Pneumonia Acute Viral syndrome Acute
[2016-09-07] MEDS ORDERED: glyBURIDE 5 MG TAB PO SCH (11:00)
== END 2016-09-07 13:15 | disposition left against medical advice (07) | DRG 871 ==
LOC: OBSVTOIN 18:10 → F1N 19:53
PROVIDERS: ADMIT Internal Medicine; ATTEND Internal Medicine
DX: A41.9 Sepsis, unspecified organism (principal); J85.1 Abscess of lung with pneumonia; E87.1 Hypo-osmolality and hyponatremia; E11.9 Type 2 diabetes mellitus without complications; I10 Essential (primary) hypertension; E03.9 Hypothyroidism, unspecified; B19.10 Unspecified viral hepatitis B without hepatic coma; B19.20 Unspecified viral hepatitis C without hepatic coma; J44.9 Chronic obstructive pulmonary disease, unspecified; F17.210 Nicotine dependence, cigarettes, uncomplicated
CPT/HCPCS: 82947-QW; 96365; J0456; J1335; J1650; J1815; Q9967

== ENCOUNTER 2016-09-07 14:09 | Inpatient (IN) | payer SELFPAY ==
[2016-09-07] MEDS ORDERED: ONDANSETRON 4 MG/2 ML VIAL IVP PRN (14:59)
[2016-09-07] MEDS ORDERED: ONDANSETRON DISINTEGRATING 4 MG TAB PO PRN (14:59)
[2016-09-07] MEDS ORDERED: ACETAMINOPHEN 325 MG TAB PO PRN (14:59)
--- NOTE | 2016-09-07 15:09 | PDGENHP ---
History and Physical - Chief Complaint Patient returns after leaving AMA - History of Present Illness Patient admitted previously for right upper lobe pneumonia and possible empyema. He has been treated with Invanz IV repeat CT scan showed minimal improvement and possible abscess formation so was seen by pulmonology and likely bronchoscopy tomorrow morning. Patient abruptly left AMA to decent distance at the base achiness since returned. He has no specific complaints today after returning. He continues to have a cough feel weak and washed out. History Information - Allergies/Home Medication List Allergies/Adverse Reactions: Penicillins Allergy (Verified 08/14/16 12:09) Home Medications: glyBURIDE [Glyburide] 10 mg PO DAILY 08/14/16 [Last Taken 09/02/16] Levothyroxine [Synthroid 150 mcg (*)] 150 mcg PO DAILY06 08/19/16 [Last Taken ] Lisinopril [Zestril 40 mg (*)] 40 mg PO DAILY 08/19/16 [Last Taken 09/02/16] I have personally reviewed and updated: family history, medical history, social history, surgical history - Past Medical History COPD, diabetes type 2 - Surgical History Reports: no pertinent surgical hx - Family History Positive for: non-pertinent - Social History Smoking Status: Current every day smoker Review of Systems ROS: 10pt was reviewed & negative except for what was stated in HPI & below Physical Exam Temp Pulse Resp BP Pulse Ox 37 C 127 H 16 119/76 97 09/07/16 14:20 09/07/16 14:20 09/07/16 14:20 09/07/16 14:20 09/07/16 14:20 Constitutional: no apparent distress, chronically ill appearing Eyes: PERRL, EOMI Ears, Nose, Mouth, Throat: moist mucous membranes Cardiovascular: regular rate and rhythym, no murmur, rub, or gallop Respiratory: no respiratory distress, no rales or rhonchi, reduced air movement (Right upper lobe) Gastrointestinal: normoactive bowel sounds, soft, non-tender abdomen, no palpable masses Genitourinary: no bladder fullness Skin: warm, normal color Musculoskeletal: no joint effusions Neurologic: AAOx3 Psychiatric: interacting appropriately, not anxious Assessment & Plan Assessment: 1: Right upper lobe pneumonia likely empyema. Discussed with pulmonology who will likely proceed with bronchoscopy in the morning will make him NPO after midnight. Hold Invanz until pulmonology sees and resume after bronch tomorrow morning 2: Uncontrolled type 2 diabetes, patient with increased hyperglycemia likely secondary to infection and overall poor control. Plan would be to resume his glyburide while he is here add Lantus 15 units in the morning 30 units at night and additional sliding scale insulin as needed patient will likely need Lantus insulin at the time of discharge 3: COPD: Patient with long-term history of tobacco use and imaging evidence on CT scan of COPD. Patient is interesting and discontinuation of tobacco use, tobacco cessation counseling. Currently no acute exacerbation noted. 4: DVT prophylaxis: Start low-molecular weight heparin tomorrow after bronchoscopy.
--- NOTE | 2016-09-07 15:13 | PDDCSUM ---
Discharge Summary Discharge Summary: Date of admission 09/02/2016 Date of discharge 09/07/2016 Patient left against medical advice Diagnosis 1. Right upper lobe pneumonia likely empyema 2: Type 2 diabetes uncontrolled 3: Probable COPD Diagnostics: CT scan of the chest showing no pulmonary embolism but consolidation right upper lobe with mass or adenopathy in the mediastinum Hospital course Mr. Shelby 66-year-old cachectic man who comes in not feeling fatigue evaluation included chest x-ray and CT scan which revealed a consolidation of the right upper lobe possible abscess formation and adenopathy versus mass in the mauricio. He had been on IV Invanz for pneumonia repeat CT scan showed minimal improvement and possible abscess formation so pulmonology was consulted implant on doing a bronchoscopy the next day. Patient abruptly decided to leave against medical advice left hospital and has since returned for readmission. Please see admitting H&P.
[2016-09-07] MEDS ORDERED: D50W 25 GM/50 ML SYR IVP PRN (15:15)
[2016-09-07] MEDS ORDERED: ALBUTEROL 60 PUFFS/8 GM MDI IH PRN (16:07)
[2016-09-07] MEDS ORDERED: oxyCODONE IR 5 MG TAB PO PRN (16:07)
[2016-09-07 22:25] LABS: ANION GAP 6 mEq/L (8-16); CALCIUM 8.6 mg/dL (8.5-10.4); CARBON DIOXIDE 30 mEq/l (22-31); CHLORIDE 92 mEq/L (97-110); CREATININE 0.5 mg/dL (0.7-1.3); GLOMERULAR FILTRATION RATE > 60; GLUCOSE 403 mg/dL (70-100); POTASSIUM 5.4 mEq/L (3.5-5.2); SODIUM 128 mEq/L (134-144)
[2016-09-07] MEDS: INSULIN GLARGINE 100 UNITS/ML SYRINGE SC SCH (23:48)
[2016-09-08 05:18] LABS: % IMMATURE GRANULYOCYTES 2.4 % (0.0-1.1); ABSOLUTE IMMATURE GRANULOCYTES 0.28 10^3/uL (0.00-0.10); ADD DIFF? NO; ADD MORPH? NO; ADD SCAN? YES; FRAGMENT RBC FLAG 0 (0-99); HEMATOCRIT 39.6 % (40.0-51.0); HEMOGLOBIN 13.3 g/dL (13.7-17.5); LEFT SHIFT FLG 10 (0-99); LIPEMIA HEMOLYSIS FLAG 80 (0-99); MEAN CELL HEMOGLOBIN 32.3 pg (27.9-34.1); MEAN CELL HEMOGLOBIN CONCENTR. 33.6 g/dL (32.4-36.7); MEAN CELL VOLUME 96.1 fL (81.5-99.8); MEAN PLATELET VOLUME 9.3 fL (8.7-11.7); PLATELET CLUMPS FLAG 10 (0-99); PLATELET COUNT 455 10^3/uL (150-400); RED BLOOD CELL COUNT 4.12 10^6/uL (4.40-6.38); RED CELL DISTRIBUTION WIDTH 13.4 % (11.5-15.2)
[2016-09-08 05:19] LABS: ATYPICAL LYMPHOCYTE FLAG 100 (0-99)
[2016-09-08 05:25] LABS: ANION GAP 9 mEq/L (8-16); CALCIUM 8.7 mg/dL (8.5-10.4); CARBON DIOXIDE 29 mEq/l (22-31); CHLORIDE 98 mEq/L (97-110); CREATININE 0.5 mg/dL (0.7-1.3); GLOMERULAR FILTRATION RATE > 60; GLUCOSE 245 mg/dL (70-100); POTASSIUM 5.8 mEq/L (3.5-5.2); SODIUM 136 mEq/L (134-144)
[2016-09-08] MEDS: LEVOTHYROXINE 150 MCG TAB PO SCH (06:07)
[2016-09-08 06:22] LABS: SCAN NEGATIVE
[2016-09-08] MEDS ORDERED: INSULIN GLARGINE 100 UNITS/ML SYRINGE SC SCH ×2 (09:00→13:23)
[2016-09-08] MEDS: LISINOPRIL 40 MG TAB PO SCH (09:15)
[2016-09-08] MEDS: glyBURIDE 5 MG TAB PO SCH (09:15)
[2016-09-08] MEDS: INSULIN LISPRO 100 UNIT/ML SC SCH ×4 (09:15→17:02)
[2016-09-08] MEDS ORDERED: MIDAZOLAM 2 MG/2 ML VIAL ONE (13:22)
[2016-09-08] MEDS ORDERED: ALBUTEROL 3 ML DEYVIAL ONE (13:22)
[2016-09-08] MEDS ORDERED: fentaNYL 100 MCG/2 ML INJ ONE (13:23)
[2016-09-08] MEDS ORDERED: LIDOCAINE 2% JELLY 5 ML TUBE ONE (13:23)
--- NOTE | 2016-09-08 14:54 | HOSPPROG ---
Hospitalist Progress Note Assessment/Plan: 66 yo M with longstanding and current tobacco use hx presenting with continued RUL PNA. Pt with significant right upper lobe pneumonia and adenopathy in the mediastinum. Repeat CT reviewed and shows question development of abscess. # RUL PNA complicated by sepsis on admission: Significant consolidation and right upper lobe noted on CT scan. Discussed with Dr. Sommer yesterday and he will undergo bronch today. * Resume abx after bronch, has been on Invanz # DM2: Hyper glycemia although patient likely had poor control prior to admission with hemoglobin A1c greater than 10 in July. * resume glyburide * Have started lantus and titrated up to 30 u bid. Pt continues to have elevated BS. * consider metformin. Has had contrast so need to hold til after dc. # copd: approximately 50 pack year smoking hx and imaging evidence of copd. Will start duonebs/albuterol. Good air mvmt and no e/o acute exacerbation currently # malnutrition: with BMI of 17, states he has lost 15-20 pounds in the last several weeks, nutrition consult # tobacco use: patient interested in quitting, states he has cut down significantly already # dispo: IP status, will need > 48 hours stay for eval/mgmt of above and IV abx Subjective: Patient frustrated. He feels that his care is sub optimal, unfortunately he opted to leave against medical advice yesterday and came back 2 hours later for readmission stating he needed to pay some bills. He feels that he is not getting better here although is willing to stay and agrees to not leave AMA at this time again. His blood sugars are elevated and he blames the menu here at the hospital. Objective: Vital Signs Temp Pulse Resp BP Pulse Ox 37.0 C 107 H 20 115/77 96 09/08/16 12:44 09/08/16 12:44 09/08/16 12:44 09/08/16 12:44 09/08/16 12:44 Laboratory Results 09/08/16 04:51 09/08/16 04:51 09/07/16 09/08/16 09/09/16 05:59 05:59 05:59 Output Total 1 Balance -1 - Physical Exam Constitutional: no apparent distress, chronically ill appearing Eyes: PERRL, EOMI Ears, Nose, Mouth, Throat: moist mucous membranes Cardiovascular: regular rate and rhythym, no murmur, rub, or gallop Respiratory: no respiratory distress, reduced air movement Gastrointestinal: normoactive bowel sounds, soft, non-tender abdomen Skin: warm Neurologic: AAOx3 Psychiatric: flat affect ICD10 Worksheet Patient Problems: Problems Problem Status Diagnosed Hyperglycemia Acute Hyponatremia Acute Pneumonia Acute Right upper lobe pneumonia Acute Viral syndrome Acute
--- NOTE | 2016-09-08 15:49 | GPN ---
[f rep st] PROCEDURE NOTE DATE OF PROCEDURE: 09/08/2016 PROCEDURE: Bronchoscopy. INDICATION: Dense right upper lobe infiltrate with a suggestion of possible cavitation. Associated mass lesion cannot be excluded. There is also evidence of right hilar and mediastinal adenopathy. This procedure is being done to assess the right upper lobe airways, obtain cultures, and obtain biopsies/ cytologies. PROCEDURE NOTE: The procedure was performed in the endoscopy unit. Informed consent was obtained from the patient. Appropriate timeout was performed. Barrier masks were worn. Topical anesthesia this was accomplished with a small amount of Hurricaine spray and approximately 14 cc of 1% lidocaine. Intravenous conscious sedation included 5 mg of Versed and 125 mcg of fentanyl. The fiberoptic bronchoscope was passed via bite block orally into the larynx. Laryngeal structures were normal. The vocal cords moved normally with respiration and cough. The bronchoscope was then advanced into the trachea and into the lower tracheobronchial tree bilaterally. All areas were observed to at least the first subsegmental level, including the right upper lobe. Anatomy was normal bilaterally. There were no endobronchial lesions. The mucosa appeared normal. There were no significant secretions. The main mauricio was somewhat widened/splayed towards the right side. Bronchial washings/lavage samples were obtained from the right upper lobe and combined with bronchial washes from the right. A cytology brush sample was obtained from the right upper lobe. A Yanes needle biopsy was obtained from the main mauricio on the right side and processed for cytologies. The patient tolerated the procedure well. There were no complications. There was no significant bleeding. Vital signs and oxygen saturations on supplemental oxygen remained normal throughout the procedure. IMPRESSION: 1. Normal endobronchial anatomy with the exception of a mildly widened main mauricio. 2. Specifically, the right upper lobe was normal. 3. No secretions were found. Appropriate samples were sent to the laboratory as outlined above. These included cultures and cytologies. /[id number]/MODL MTDD
[2016-09-08] MEDS: INSULIN GLARGINE 100 UNITS/ML SYRINGE SC SCH (21:45)
[2016-09-09] MEDS: LEVOTHYROXINE 150 MCG TAB PO SCH (05:43)
[2016-09-09] MEDS: glyBURIDE 5 MG TAB PO SCH (08:27)
[2016-09-09] MEDS: INSULIN LISPRO 100 UNIT/ML SC SCH ×3 (08:28→18:33)
[2016-09-09] MEDS: LISINOPRIL 40 MG TAB PO SCH (08:28)
--- NOTE | 2016-09-09 10:42 | HOSPPROG ---
Hospitalist Progress Note Assessment/Plan: 66 yo M with longstanding and current tobacco use hx presenting with continued RUL PNA. Pt with significant right upper lobe pneumonia and adenopathy in the mediastinum. Repeat CT reviewed and shows question development of abscess. Today is my first encounter with the patient/ chart reviewed. Discussed his care with Dr Sommer (pulmology). # RUL PNA complicated by sepsis on admission: * Significant consolidation and right upper lobe noted on CT scan. * status post bronchoscopy which showed a normal endobronchial anatomy with a mildly widened mauricio * oxy oxygen levels are stable on room air * multiple biopsies are pending # DM2: Hyper glycemia although patient likely had poor control prior to admission with hemoglobin A1c greater than 10 in July. * resume glyburide * Lantus was initiated and increased/after talking with pharmacy, patient has been refusing this medication * After discussion with Darin, he will unlikely do any type of injection. * consider metformin. Has had contrast so need to hold till after dc. # copd: * approximately 50 pack year smoking hx and imaging evidence of copd. * duonebs/albuterol. # malnutrition: BMI of 17 states * he has lost 15-20 pounds in the last several weeks * could be due to high glycemic levles # Nicotine dependence: patient interested in quitting # dispo: IP status, will need > 48 hours stay for eval/mgmt of above and IV abx. Possibly dc tomorrow. Subjective: Darin has no complaints/ overall feeling better, but feels too weak for dc today. Objective: Vital Signs Temp Pulse Resp BP Pulse Ox 37 C 107 H 18 100/70 95 09/09/16 07:44 09/09/16 07:44 09/09/16 07:44 09/09/16 08:28 09/09/16 07:44 Microbiology 09/08/16 14:35 Gram Stain - Final Lung Right Upper Lobe - Bronchial Washings Laboratory Results 09/08/16 04:51 09/08/16 04:51 09/08/16 09/09/16 09/10/16 05:59 05:59 05:59 Intake Total 480 Output Total 1 Balance 479 - Physical Exam Constitutional: no apparent distress, cachectic Eyes: PERRL Ears, Nose, Mouth, Throat: hearing normal Cardiovascular: regular rate and rhythym, no murmur, rub, or gallop Respiratory: no respiratory distress, no rales or rhonchi Gastrointestinal: normoactive bowel sounds Skin: warm Musculoskeletal: full muscle strength Neurologic: AAOx3 Psychiatric: not encephalopathic, poor insight, other (impulsive) ICD10 Worksheet Patient Problems: Problems Problem Status Diagnosed Hyperglycemia Acute Hyponatremia Acute Pneumonia Acute Right upper lobe pneumonia Acute Viral syndrome Acute
[2016-09-09 12:57] LABS: GLUCOSE 419 mg/dL (70-100)
[2016-09-09] MEDS ORDERED: INSULIN GLARGINE 100 UNITS/ML SYRINGE SC SCH (18:38)
--- NOTE | 2016-09-09 18:41 | SOAPPROG ---
SOAP Progress Note Assessment/Plan: Assessment: Right upper lobe infiltrate/pneumonia. Most consistent with a smoldering anaerobic process. Clinically much improved. Remains on Invanz, Bronchodilator therapy. Status post bronchoscopy looking for possible malignancy which was not seen visually. Cytology is pending. Cultures pending but likely will be negative on antibiotics. COPD emphysema: Secondary to tobacco abuse. Stable. Will need outpatient characterization. Diabetes mellitus: Glucose is are running high. On sliding scale coverage and glyburide. Systemic hypertension: Blood pressure OK DVT prophylaxis: Ambulatory. Plan: Continue Invanz and bronchodilator therapies. Possibly home tomorrow on oral antibiotics. He is penicillin allergic so likely he will need clindamycin as well as Levaquin. Duration to be discussed tomorrow. Hopefully cytologies will be back tomorrow. I will plan on following him in the future as an outpatient. Subjective: Overall, feels significantly better compared with the last several days and weeks. He is breathing better. No further mucus, cough is improved. Denies chest pain. Objective: Vital Signs Temp Pulse Resp BP Pulse Ox 36.4 C 91 20 101/56 L 98 09/09/16 16:00 09/09/16 16:00 09/09/16 16:00 09/09/16 16:00 09/09/16 16:00 Microbiology 09/08/16 14:35 Mycobacterial Smear (SUNITA) - Final Lung Right Upper Lobe - Bronchial Washings 09/08/16 14:35 Gram Stain - Final Lung Right Upper Lobe - Bronchial Washings Laboratory Results 09/08/16 04:51 09/09/16 12:20 09/08/16 09/09/16 09/10/16 05:59 05:59 05:59 Intake Total 480 Output Total 1 Balance 479 Bronch wash: AFB smear negative, mixed oral kris so far. Fungal and AFB cultures pending. Cytologies pending from the bronch wash, bronchial brushings , and the carinal aspirate. Physical Exam - Physical Exam General Appearance: alert, no apparent distress EENT: other ( On room air, saturations in the mid-to-high 90s.) Neck: normal inspection ( lymphadenopathy.) Respiratory: decreased breath sounds ( Bilaterally.), rales ( Few rales related to the right upper lobe.), other ( Coarse breath sounds with some bronchial changes right upper lobe.), No normal breath sounds, No rhonchi, No wheezing Cardiac/Chest: tachycardia ( at times.) Abdomen: normal bowel sounds, non-tender, soft Skin: normal color, warm/dry Lymphatic: no adenopathy Extremities: No pedal edema Neuro/Psych: no motor/sensory deficits, No cognition abnormalities ICD10 Worksheet Patient Problems: Problems Problem Status Diagnosed Hyperglycemia Acute Hyponatremia Acute Pneumonia Acute Right upper lobe pneumonia Acute Viral syndrome Acute
[2016-09-09] MEDS: ERTAPENEM 1 GM in NS 100 ML IV SCH (18:44)
[2016-09-10] MEDS: LEVOTHYROXINE 150 MCG TAB PO SCH (05:26)
[2016-09-10 07:24] VITALS: BP 100/62; PULSE 102; RESP 16; TEMP 97.7; O2SAT 94
[2016-09-10] MEDS: INSULIN LISPRO 100 UNIT/ML SC SCH ×2 (08:19→12:00)
[2016-09-10] MEDS: glyBURIDE 5 MG TAB PO SCH (08:20)
[2016-09-10] MEDS: LISINOPRIL 40 MG TAB PO SCH (08:25)
--- NOTE | 2016-09-10 09:36 | HOSPPROG ---
Hospitalist Progress Note Assessment/Plan: 66 yo M with longstanding and current tobacco use hx presenting with continued RUL PNA. Pt with significant right upper lobe pneumonia and adenopathy in the mediastinum. Repeat CT reviewed and shows question development of abscess. # RUL PNA complicated by sepsis on admission: * Significant consolidation and right upper lobe noted on CT scan. * status post bronchoscopy which showed a normal endobronchial anatomy with a mildly widened mauricio * oxy oxygen levels are stable on room air * multiple biopsies are pending * Will discharge on Levaquin and clindamycin or possibly moxifloxacin * will 1st discuss with Dr. Medardo Sommer # DM2: Hyper glycemia although patient likely had poor control prior to admission with hemoglobin A1c greater than 10 in July. * resume glyburide * Lantus was initiated and increased/after talking with pharmacy, patient has been refusing this medication * After discussion with Darin, he will unlikely do any type of injection. * start metformin today # copd: * approximately 50 pack year smoking hx and imaging evidence of copd. * duonebs/albuterol. # malnutrition: BMI of 17 states * he has lost 15-20 pounds in the last several weeks * could be due to high glycemic levles # Nicotine dependence: patient interested in quitting # dispo: discharge today but will stay 1st discussed with Dr. Medardo Sommer. He will be followed by Dr. Sommer in the outpatient setting. Subjective: Darin is feeling pretty good today. No complaints Objective: Vital Signs Temp Pulse Resp BP Pulse Ox 36.5 C 102 H 16 100/62 94 09/10/16 07:22 09/10/16 07:22 09/10/16 07:22 09/10/16 08:25 09/10/16 07:22 Microbiology 09/08/16 14:35 Mycobacterial Smear (SUNITA) - Final Lung Right Upper Lobe - Bronchial Washings 09/08/16 14:35 Gram Stain - Final Lung Right Upper Lobe - Bronchial Washings Laboratory Results 09/08/16 04:51 09/09/16 12:20 09/09/16 09/10/16 09/11/16 05:59 05:59 05:59 Intake Total 480 Output Total 1 Balance 479 - Physical Exam Constitutional: no apparent distress, appears nourished, not in pain Eyes: PERRL Ears, Nose, Mouth, Throat: hearing normal Cardiovascular: regular rate and rhythym Respiratory: no respiratory distress, no rales or rhonchi Gastrointestinal: normoactive bowel sounds Skin: warm Musculoskeletal: no muscle tenderness Neurologic: AAOx3 Psychiatric: interacting appropriately ICD10 Worksheet Patient Problems: Problems Problem Status Diagnosed Hyperglycemia Acute Hyponatremia Acute Pneumonia Acute Right upper lobe pneumonia Acute Viral syndrome Acute
[2016-09-10] MEDS: ERTAPENEM 1 GM in NS 100 ML IV SCH (10:06)
--- NOTE | 2016-09-10 15:42 | SOAPPROG ---
SOAP Progress Note Assessment/Plan: Assessment: Right upper lobe infiltrate/pneumonia. Most consistent with a smoldering anaerobic process. Clinically much improved. Remains on Invanz, Bronchodilator therapy. Status post bronchoscopy looking for possible malignancy which was not seen visually and Cytology is negative. Final cultures pending but likely will be negative. COPD emphysema: Secondary to tobacco abuse. Stable. Will need outpatient characterization. Diabetes mellitus: Glucose is are running high. On sliding scale coverage and glyburide. Systemic hypertension: Blood pressure OK DVT prophylaxis: Ambulatory. Plan: Home tomorrow on oral antibiotics. He is penicillin allergic so likely he will need clindamycin as well as Levaquin for 2 weeks. I will plan on following him in the office as an outpatient in 2 weeks with a new chest x-ray then, further decisions on antibiotics, characterization of his COPD by physiology, etc.. Subjective: Feels well, wants to go home, denies shortness of breath or chest pain, no cough or mucus. Objective: Vital Signs Temp Pulse Resp BP Pulse Ox 36.5 C 102 H 16 100/62 94 09/10/16 07:22 09/10/16 07:22 09/10/16 07:22 09/10/16 08:25 09/10/16 07:22 Microbiology 09/08/16 14:35 Mycobacterial Smear ([facility]ITA) - Final Lung Right Upper Lobe - Bronchial Washings 09/08/16 14:35 Gram Stain - Final Lung Right Upper Lobe - Bronchial Washings Laboratory Results 09/08/16 04:51 09/09/16 12:20 09/09/16 09/10/16 09/11/16 05:59 05:59 05:59 Intake Total 480 Output Total 1 Balance 479 Cytologies are negative for evidence of malignancy or specific infection. Cultures remained negative But results still preliminary. Physical Exam - Physical Exam General Appearance: alert, no apparent distress EENT: other ( on room air) Neck: normal inspection Respiratory: lungs clear, No rales, No rhonchi Cardiac/Chest: regular rate, rhythm Abdomen: normal bowel sounds, non-tender, soft Skin: normal color, warm/dry Extremities: No pedal edema Neuro/Psych: no motor/sensory deficits, No cognition abnormalities ICD10 Worksheet Patient Problems: Problems Problem Status Diagnosed Hyperglycemia Acute Hyponatremia Acute Pneumonia Acute Right upper lobe pneumonia Acute Viral syndrome Acute
--- NOTE | 2016-09-10 15:56 | GDS ---
[f rep st] DISCHARGE SUMMARY DISCHARGE DIAGNOSES: 1. Sepsis 2. Right upper lobe pneumonia . 3. Uncontrolled Diabetes type 2. 4. Chronic obstructive pulmonary disease. 5. Malnutrition. 6 Nicotine dependence. CONSULTATIONS DURING HIS STAY: Dr. Medardo Sommer. HOSPITAL COURSE: Briefly, Darin Henley is a 66-year-old gentleman, who was admitted previously for right upper lobe pneumonia and possible empyema. He was treated with IV Invanz and showed minimal improvement, and there was concern for possible abscess formation. He was to see Pulmonology and have a bronchoscopy, but then he left AMA. He decided to come back to the emergency room and was further evaluated. During his stay, he was seen by Dr. Medardo Sommer. On 09/08/2016, he had a bronchoscopy performed that showed normal endobronchial anatomy with the exception of a mildly widened main mauricio. Specifically, the right upper lobe was normal. He has multiple biopsies pending. He will be discharged today on clindamycin and Levaquin for the next 2 weeks, and follow up with Dr. Sommer in the outpatient setting. HOSPITAL COURSE PER PROBLEM: 1. Right upper lobe pneumonia, complicated by sepsis on admission: On a CT scan, it was noted that he had significant consolidation. His oxygen levels are stable on room air. He will be discharged on Levaquin and clindamycin, and follow up with Dr. Medardo Sommer. 2. Uncontrolled diabetes type: His hemoglobin A1c in July was greater then 10. Glyburide has been resumed. I have initiated metformin. He is not likely to do Lantus. Reviewed with him the newer drugs on the market that he could try orally to get greater control. 3. COPD: He has approximately a 50 pack-year smoking history and imaging evidence of COPD. 4. Malnutrition: His BMI is 17. He has lost approximately 15-20 pounds in the last several weeks. 5. Nicotine dependence: He is interested in quitting smoking. He realizes it is impacting his health. PENDING LABS: Multiple biopsies are pending. CONDITION AT DISCHARGE: Stable. Blood pressure is 100/62, heart rate of 92, respiratory rate is 16, O2 sats on room air 94%, temperature is 36.5 Celsius. MEDICATIONS AT DISCHARGE: Please see the EMR. DISCHARGE INSTRUCTIONS: 1. Follow up with Dr. Sommer for further evaluation. 2. Take it easy while he is on Levaquin. It can cause tendon rupture. 3. Take clindamycin. If he develops ongoing diarrhea, he needs to see his primary care doctor immediately. 4. Consider getting SGLP2. These are a new class of oral drugs for diabetes, which may give him better control. 5. Follow up with Dr. Sommer. 6. Stay on an ADA diet. Metformin is also a new drug for him. Greater than 30 minutes discharging and coordinating care. /[id number]/MODL MTDD
[2016-09-10] MEDS ORDERED: metFORMIN HCL 500 MG TAB PO SCH (18:00)
== END 2016-09-10 16:32 | disposition home or self-care (01) | DRG 871 ==
LOC: EDSTATUS 14:46 → F3N 17:37 → F3E 09-09 16:52
PROVIDERS: ADMIT Internal Medicine; ATTEND Internal Medicine
PROC: 0B948ZX Drainage of Right Upper Lobe Bronchus, Via Natural or Artificial Opening Endoscopic, Diagnostic (ICD-10-PCS; principal; 2016-09-08 14:15)
PROC: 0BB48ZX Excision of Right Upper Lobe Bronchus, Via Natural or Artificial Opening Endoscopic, Diagnostic (ICD-10-PCS; principal; 2016-09-08 14:15)
DX: A41.9 Sepsis, unspecified organism (principal); J18.0 Bronchopneumonia, unspecified organism; E11.65 Type 2 diabetes mellitus with hyperglycemia; J44.9 Chronic obstructive pulmonary disease, unspecified; E46 Unspecified protein-calorie malnutrition; Z68.1 Body mass index [BMI] 19.9 or less, adult; F17.210 Nicotine dependence, cigarettes, uncomplicated
CPT/HCPCS: 82947-QW; 97161-GP; J1335; J1815; J2250; J3010

== ENCOUNTER → 2016-12-13 | Outpatient (CLI) | payer OTHER | LOC: FIMAGING 13:24 | PROVIDERS: ATTEND Family Medicine | DX: J18.1 Lobar pneumonia, unspecified organism (principal) ==